=== PATIENT | female | born 1975 ===

== ENCOUNTER 2016-11-09 11:00 | Observation (INO) ==
[2016-11-05 09:34] LABS: Apearance,Urine CLEAR (Clear); Bilirubin,Urine Negative (Negative); Blood, Urine Negative (Negative); Glucose,Urine (UA) Negative (Negative); Ketones,Urine Negative (Negative); Mucus,Urine Occasional /LPF (Occasional); Nitrite,Urine Negative (Negative); Protein,Urine 30 MG/DL; RBC,Urine <1 /HPF (0-4); Squamous Epithelial Cell,Urine Occasional /HPF (0-10); Urine Color Yellow (Yellow); Urine Specific Gravity 1.028 (1.001-1.035); Urine Urobilinogen < 2.0 EU/DL (0.2-1.0); WBC,Urine <1 /HPF (0-6)
[2016-11-05 09:40] LABS: Basophils % 0.7 % (0.0-0.8); Eosinophils # 0.1 10*3/uL (0.0-0.87); Eosinophils % 2.5 % (0.00-10.9); Hematocrit 26.3 VOL% (35.7-47.0); Immature Granulocytes % 0.2 %; Immature Granulocytes Absolute 0.01 #; Lymphocytes # 1.6 10*3/uL (1.4-4.0); Lymphocytes % 38.6 % (21.3-54.2); Mean Corpuscular HGB Conc 27.8 GM/DL (32-36); Mean Corpuscular Hemoglobin 19 PG (27-34); Mean Corpuscular Volume 69.9 FL (87-102); Mean Platelet Volume 9.1 FL (9.6-12.0); Monocytes # 0.4 10*3/uL (0.11-0.8); Monocytes % 9.9 % (1.7-12.7); Neutrophils # 1.9 10*3/uL (1.4-7.4); Neutrophils % 48.1 % (38.7-73.9); Platelet Count 318 T/CUMM (130-400); Red Blood Count 3.76 MC/CUMM (3.8-5.5); Red Cell Distribution Width 20.1 % (9.3-17.3)
--- NOTE | 2016-11-05 09:45 | Order Completion Report ---
See report scanned to EMR
[2016-11-05 10:01] LABS: Hemoglobin 7.3 GM/DL (12.0-16.0)
[2016-11-05 10:02] LABS: Albumin 3.3 G/DL (3.4-5.0); Bilirubin,Total 0.4 MG/DL (0.2-1.0); Calcium 8.5 MG/DL (8.5-10.1); Potassium 3.7 MMOL/L (3.5-5.1); Total Protein 7.1 G/DL (6.4-8.3)
--- NOTE | 2016-11-05 10:20 | XRay Report ---
XR chest 2V Date: 11/05/2016 9:08 AM History: Respiratory preoperative evaluation Comparison: None Technique: PA and lateral chest Findings: The heart is normal in size. Calcified granulomata/nodes with minimal atelectasis in the left lower lobe. Unremarkable mediastinum with minimal degenerative changes. Prior cholecystectomy. Impression: Old healed granulomatous disease with minimal atelectasis/scarring in the left lower lobe. PROCEDURE INTERPRETED AT [facility] DEPARTMENT OF RADIOLOGY Final Report Signed by: Dr. Malathi Alvarado
[2016-11-05 10:22] LABS: Hypochromasia 2+
[2016-11-05 10:23] LABS: Microcytosis 2+; Platelet Estimate Normal; Polychromasia Slight; Target Cells Slight
[2016-11-05 11:14] LABS: HIV Antigen/Antibody Result Nonreactive (Nonreactive)
[2016-11-08 20:27] LABS: Apearance,Urine Slightly Hazy (Clear); Bilirubin,Urine Negative (Negative); Blood, Urine Negative (Negative); Glucose,Urine (UA) Negative (Negative); Ketones,Urine Negative (Negative); Mucus,Urine Occasional /LPF (Occasional); Nitrite,Urine Negative (Negative); Protein,Urine Negative; RBC,Urine <1 /HPF (0-4); Squamous Epithelial Cell,Urine Occasional /HPF (0-10); Urine Color Yellow (Yellow); Urine Specific Gravity 1.006 (1.001-1.035); Urine Urobilinogen < 2.0 EU/DL (0.2-1.0); WBC,Urine 1 /HPF (0-6)
[2016-11-08 20:40] LABS: Barbiturates Screen,Urine Negative (Negative); Benzodiazepines Screen,Urine Negative (Negative); Cannabinoid Screen,Urine Negative (Negative); Opiate Screen,Urine Negative (Negative); Phencyclidine Screen,Urine Negative (Negative)
[2016-11-08 20:50] LABS: Basophils % 0.5 % (0.0-0.8); Eosinophils # 0.1 10*3/uL (0.0-0.87); Eosinophils % 1.3 % (0.00-10.9); Hematocrit 26.1 VOL% (35.7-47.0); Hemoglobin 7.4 GM/DL (12.0-16.0); Immature Granulocytes % 0.2 %; Immature Granulocytes Absolute 0.01 #; Lymphocytes # 2.4 10*3/uL (1.4-4.0); Lymphocytes % 40.5 % (21.3-54.2); Mean Corpuscular HGB Conc 28.4 GM/DL (32-36); Mean Corpuscular Hemoglobin 20 PG (27-34); Mean Corpuscular Volume 69.6 FL (87-102); Mean Platelet Volume 9.3 FL (9.6-12.0); Monocytes # 0.7 10*3/uL (0.11-0.8); Monocytes % 10.8 % (1.7-12.7); NRBC # 0.02 10*3/uL; Neutrophils # 2.8 10*3/uL (1.4-7.4); Neutrophils % 46.7 % (38.7-73.9); Platelet Count 340 T/CUMM (130-400); Red Blood Count 3.75 MC/CUMM (3.8-5.5); Red Cell Distribution Width 19.9 % (9.3-17.3)
[2016-11-08 21:31] LABS: Hypochromasia 2+; Microcytosis 2+; Platelet Estimate Normal; Poikilocytosis 2+; Target Cells Few
[2016-11-09 06:18] LABS: Basophils % 0.5 % (0.0-0.8); Eosinophils # 0.1 10*3/uL (0.0-0.87); Hematocrit 28.3 VOL% (35.7-47.0); Hemoglobin 8.4 GM/DL (12.0-16.0); Immature Granulocytes % 0.2 %; Immature Granulocytes Absolute 0.01 #; Lymphocytes # 2.7 10*3/uL (1.4-4.0); Lymphocytes % 45.2 % (21.3-54.2); Mean Corpuscular HGB Conc 29.7 GM/DL (32-36); Mean Corpuscular Hemoglobin 21 PG (27-34); Mean Corpuscular Volume 71.5 FL (87-102); Mean Platelet Volume 9.6 FL (9.6-12.0); Monocytes # 0.5 10*3/uL (0.11-0.8); Monocytes % 8.5 % (1.7-12.7); NRBC # 0.02 10*3/uL; Neutrophils # 2.6 10*3/uL (1.4-7.4); Neutrophils % 43.6 % (38.7-73.9); Platelet Count 250 T/CUMM (130-400); Red Blood Count 3.96 MC/CUMM (3.8-5.5); Red Cell Distribution Width 19.7 % (9.3-17.3)
--- NOTE | 2016-11-09 07:29 | OB/GYN History & Physical ---
History of Present Illness Chief complaint: Pelvic pain History of present illness: Ms. Carter is a 40 year old female Multiparous patient with recurrent ovarian cysts, amenorrhea, failure to relieve pain medication specifically Lortab, Motrin, also low-dose control pills. Ultrasound demonstrated multiple ovarian cyst. Patient has no future desire for childbearing. We will proceed with robotic hysterectomy risks benefits were thoroughly discussed she is in full agreement. Patient has a history of anemia which her blood count was 6.2 and 21 on admission. She received 2 units of packed RBCs whereupon a H&H 1 hour after her last unit demonstrated 8 and 28.3. Will also have 2 units of packed RBCs on hold after surgery. Home Medications Medication Instructions Recorded Confirmed Type Acetaminophen Tab [Tylenol Tab] 325 mg PO Q6H PRN 11/05/16 11/05/16 History Ibuprofen 200 mg PO DIRECTED PRN 11/05/16 11/05/16 History oxyCODONE/ACETAMINOPHEN 5-325 1 tablet PO DIRECTED PRN 11/05/16 11/05/16 History [Percocet 5-325] Allergies Allergy/AdvReac Type Severity Reaction Status Date / Time No Known Allergies Allergy Unverified 11/05/16 09:08 Medical,Surgical,& Family Hx - Medical History Cardio: History of: Cardiac Dysrhythmia (past hx heart murmur.) Psychological: History of: Depression (HX OF CUTTING SELF MANY YRS AGO .SCARS LEFT INNER ARM) No history of: Previous Suicide Attempt Neurology: History of: Migraine (past hx.) No history of: Seizures HEENT: History of: Eye Problem (glasses) Respiratory: History of: Respiratory Problems (flu vac-?; pneu vac-no.) Musculoskeletal: History of: Musculoskeletal Problems (left ankle fx.) Hematology: History of: Anemia No history of: Blood Transfusion Reaction Reproductive: History of: Ovarian Cysts (REMOVAL RIGHT OVAR CYST), Reproductive Problems (pelvic pain) - Surgical History HEENT Surgeries: Surgical HX of: Tonsilectomy & Adenoidectomy Abdominal Surgeries: Surgical HX of: Cholecystectomy Reproductive Surgeries: Surgical HX of;: Gynecologic Surgery (lap cyst removed rt ovary.), Tubal Ligation Orthopedic Surgeries: Surgical HX of;: Orthopedic Surgery (left tendon sx) - Family History Family History: Reports;: Family Diabetes (MOM,DAD,MATERNAL GR MOM), Family Hypertension (DAD AND MATERNAL GRANDFATHER) - Social History Smoking Status: Current every day smoker Frequency of Alcohol Use: Occasionally 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 - Constitutional Vitals: Vital Signs Temp Pulse Pulse Pulse Resp BP BP 11/09/16 04:45 97.6 F 61 61 20 146/81 146/81 11/09/16 02:50 20 11/09/16 02:49 97.9 F 72 20 155/87 11/09/16 02:02 97.9 F 61 18 155/79 11/09/16 01:49 97.6 F 77 20 155/87 11/09/16 01:19 97.8 F 71 17 121/62 11/09/16 01:14 97.6 F 71 20 121/62 11/09/16 01:09 97.8 F 71 16 119/72 11/09/16 01:02 98.3 F 70 20 121/64 11/09/16 00:19 97.8 F 68 16 153/81 11/09/16 00:17 97.8 F 68 16 153/81 11/08/16 23:17 97.9 F 69 20 151/76 11/08/16 22:47 97.8 F 74 20 139/79 11/08/16 22:42 97.7 F 83 18 141/77 11/08/16 22:37 97.7 F 78 16 138/73 11/08/16 22:30 97.3 F L 84 16 140/78 11/08/16 19:50 98.2 F 69 20 164/93 11/08/16 18:25 97.2 F L 95 H 20 BP Pulse Ox Pulse Ox 11/09/16 04:45 98 98 11/09/16 02:50 11/09/16 02:49 97 11/09/16 02:02 96 11/09/16 01:49 95 11/09/16 01:19 96 11/09/16 01:14 97 11/09/16 01:09 97 11/09/16 01:02 99 11/09/16 00:19 98 11/09/16 00:17 98 11/08/16 23:17 100 11/08/16 22:47 98 11/08/16 22:42 95 11/08/16 22:37 98 11/08/16 22:30 96 11/08/16 19:50 98 11/08/16 18:25 142/85 100 General appearance: normal weight, mild distress - Antepartum / Post Antepartum Exam Uterus exam: Present: enlarged, tender - Head Head exam: Present: normal inspection - Eye Eye exam: Present: EOMI Pupils: Present: YUNIER - ENT ENT exam: Present: normal exam - Neck Neck exam: Present: normal inspection - Respiratory Respiratory exam: Present: clear to auscultation bilaterally - Breast Breasts: as per HPI Menstruation: as per HPI - Cardiovascular Cardiovascular exam: Present: regular rate and rhythm - GI/Abdominal GI/Abdominal exam: Present: normal bowel sounds, tenderness (Bilateral adnexal region), soft - Extremities Exam Extremities exam: Present: normal inspection - Back Exam Back exam: Present: normal inspection - Neurological Exam Neurological exam: Present: alert, oriented X3 - Psychiatric Psychiatric exam: Present: normal affect - Skin Skin exam: Present: normal color Assessment and Plan (1) Ovarian cyst Status: Acute Current Visit: Yes (2) Pelvic pain Status: Acute Assessment and plan: Recurrent pelvic pain, documented ovarian cyst, treatment with ibuprofen and analgesics similar to Lortab and Percocet in the past without any good relief. Patient has no further desire for childbearing, in light of her history of recurrent anemia planned on a robotic hysterectomy and BSO. Risks benefits were thoroughly discussed and she is in full agreement Current Visit: Yes Results - Labs CBC & BMP: 11/09/16 04:34 11/05/16 09:20
[2016-11-09 10:56] LABS: Apearance,Urine CLEAR (Clear); Bilirubin,Urine Negative (Negative); Blood, Urine Negative (Negative); Glucose,Urine (UA) Negative (Negative); Ketones,Urine Negative (Negative); Nitrite,Urine Negative (Negative); Protein,Urine Negative; RBC,Urine <1 /HPF (0-4); Urine Color Colorless (Yellow); Urine Specific Gravity 1.002 (1.001-1.035); Urine Urobilinogen < 2.0 EU/DL (0.2-1.0); WBC,Urine <1 /HPF (0-6)
[~2016-11-09 11:00] MED LIST: AMPICILLIN/SULBACTAM 3,000 MG VIAL ONE; AMPICILLIN/SULBACTAM 3,000 MG in SODIUM CHLORIDE 0.9% 100 ML IV ONE; DIAZEPAM 5 MG TABLET PO ONE; FAMOTIDINE 20 MG TABLET PO ONE; INFLUENZA VIRUS VACCINE 0.5 ML SYRINGE IM ONE; LACTATED RINGERS 1,000 ML IV SCH; SODIUM CHLORIDE 0.9% 100 ML IV ONE; SODIUM CHLORIDE 0.9% 250 ML IV PRN
[2016-11-09] MEDS ORDERED: MAGNESIUM HYDROXIDE SUSP 30 ML UDCUP PO PRN (11:46)
[2016-11-09] MEDS ORDERED: ACETAMINOPHEN 325 MG TABLET PO PRN (11:46)
[2016-11-09] MEDS ORDERED: DOCUSATE SODIUM 100 MG CAPSULE PO PRN (11:46)
[2016-11-09] MEDS ORDERED: BISACODYL 10 MG SUPP RECTAL PRN (11:46)
[2016-11-09] MEDS ORDERED: BENZOCAINE/MENTHOL LOZENGE 18/BOX PO PRN (11:46)
[2016-11-09] MEDS ORDERED: ONDANSETRON 4 MG/2 ML VIAL IV PRN ×2 (11:46→12:28)
--- NOTE | 2016-11-09 11:46 | Operative Note ---
Date of procedure: 11/09/16 Procedure: Preoperative diagnosis: [] Chronic pelvic pain, endometriosis, recurrent ovarian cyst Postoperative diagnosis: Same Anesthesia: General. endotracheal anesthesia Estimated blood loss: [] 250 Surgeon: Dr. Arenas Findings: [] Cyst, endometriosis Complications: None Procedure: Robotic da Dona hysterectomy and bilateral salpingo-oophorectomy After the risk, benefits and alternatives were explained to the patient in detail and informed consent was obtained, the patient was taken to the operating room and placed in supine position. Achieving appropriate general endotracheal anesthesia, the patient was carefully repositioned in low lithotomy position in Anton stirrups., Vagina and abdomen were prepped and draped in the usual sterile fashion. Was placed which revealed clear urine. Appropriate time out, a weighted speculum was placed in the vagina. The anterior lip of the cervix was grasped and the single-tooth tenaculum and the uterus sounded to 10 cm. A medium-sized Catie manipulator cup with a 8 cm stem with balloon occluder was attached to the Catie arch manipulator apparatus which was placed without difficulty and secured in the anterior and posterior lips of the cervix using 0 Vicryl suture. After regloving with the patient flat and an NG tube in place, a supraumbilical incision was made and while elevating on the anterior abdominal wall using a towel clip, a Veress needle was inserted through the supraumbilical incision and peritoneal space with insufflation of the abdomen with CO2 gas. The 4 mm pressure rapid insufflation was then performed to achieve a pneumoperitoneum of 5 L at 20 mm of pressure. While elevating on the anterior abdominal wall using a towel clip, a 12 mm trocar inserted through the supraumbilical incision and peritoneal space with appropriate entry confirmed by direct visualization via the laparoscope. There was no evidence of any damage to underlying structures. An 8 mm robotic trocar was placed after trans-illumination of the inferior epigastric vessels bilaterally and a 512 step trocar was placed in the left upper quadrant also under direct visualization without complications the patient was then placed in Trendelenburg and the da Dona robot successively side docked. The rest of the procedure was performed through the robotic console. On visualization of the pelvis[], both ureters were identified. The utero-ovarian ligaments were identified bilaterally and taken down using PK bipolar and monopolar scissors and double burn techniques and this was carried out to the round ligaments bilaterally on maintaining cephalic traction on the Catie manipulator. The bladder flap was created anterior along the lower uterine segment using monopolar scissors. And the uterine vessels were skeletonized bilaterally and dissected. The broad ligament was also dissected as well under direct visualization. The uterine vessels were taken down and double burn technique while maintaining cephalic traction on the Catie manipulator and using the rim of the manipulator as a template. The monopolar scissors was used to try and transect the vagina from the cervix at the level of the l vaginal fornices and the specimen was removed to the mid vagina. The vaginal cuff was made hemostatic using fenestrated bipolar forceps and the vaginal cuff was closed using 0 the lock suture in a running fashion beginning at the right angle and overlapping past the midline. The uterosacral ligaments were reefed in the midline and a Zepeda type fashion for adequate elevation of the vaginal vault. Hemostasis was noted to be excellent. The ureters were identified to be functioning throughout the course of the surgery. Note that once all trochars had been place the abdominal pressure had been reduced to 50 mm of pressure upon completion of the procedure to confirm good hemostasis. All instruments were removed. The da Dona robot was successfully undocked. The patient placed back in the lithotomy position. The abdomen completely deflated. All trochars removed and trocar sites closed in the usual fashion with 0 Vicryl suture on the fascia and skin closed with jovani. Durbin cath was then removed. Indigo carmine was administered intravenously followed by Lasix and flexible cystoscopy was performed using normal saline. Normal reflux were noted from ureters bilaterally. Durbin catheter was replaced. Patient taken out of lithotomy position and awakened from anesthesia without complications. The patient was taken to recovery room in stable condition. All sponges needle and instrument counts were correct 3 at the end of this procedure. Surgeon / Physician: Rd Arenas Results - Labs CBC & BMP: 11/09/16 04:34 11/05/16 09:20 Discharge Plan - Discharge Medications No Action Ibuprofen 200 mg PO DIRECTED PRN PRN Reason: Pain Acetaminophen Tab [Tylenol Tab] 325 mg PO Q6H PRN PRN Reason: Pain oxyCODONE/ACETAMINOPHEN 5-325 [Percocet 5-325] 1 tablet PO DIRECTED PRN PRN Reason: Pain - Follow Up or Referral - Forms/Instructions
[2016-11-09] MEDS ORDERED: NALOXONE 0.4 MG/ML VIAL IV PRN (11:49)
[2016-11-09] MEDS ORDERED: HYDROmorphone PCA 30 MG/30 ML SYRINGE IV SCH (12:00)
--- NOTE | 2016-11-09 12:02 | Anesthesia Post-Op ---
Anesthesia Post OP - Post Ansesthetic Evaluation Patient seen in post op: Yes Resp: within normal limits CV: within normal limits Mental: within normal limits Temp: within normal limits [id number]-[id number]: within normal limits Nausea and Vomiting: within normal limits Pain: within normal limits
[2016-11-09] MEDS ORDERED: HYDROmorphone 2 MG/1 ML VIAL ONE (12:08)
[2016-11-09] MEDS ORDERED: ONDANSETRON 4 MG/2 ML VIAL ONE ×2 (12:08→12:15)
[2016-11-09] MEDS: HYDROmorphone 2 MG/1 ML VIAL IV PRN ×2 (12:09→12:14)
[2016-11-09] MEDS ORDERED: PROPOFOL 200 MG/20 ML VIAL IV ONE (12:15)
[2016-11-09] MEDS ORDERED: NEOSTIGMINE 10 MG/10 ML VIAL ONE (12:15)
[2016-11-09] MEDS ORDERED: fentaNYL 100 MCG/2 ML VIAL ONE (12:15)
[2016-11-09] MEDS ORDERED: GLYCOPYRROLATE 0.4 MG/2 ML VIAL ONE (12:15)
[2016-11-09] MEDS ORDERED: MIDAZOLAM 2 MG/2 ML VIAL ONE (12:15)
[2016-11-09] MEDS ORDERED: ACETAMINOPHEN 1,000 MG/100 ML VIAL IV ONE (12:15)
[2016-11-09] MEDS ORDERED: SEVOFLURANE 1 UNIT/15 MINUTE INH ONE (12:15)
[2016-11-09] MEDS ORDERED: LACTATED RINGERS 1,000 ML IV ONE (12:16)
[2016-11-09] MEDS ORDERED: ROCURONIUM 100 MG/10 ML VIAL IV ONE (12:16)
[2016-11-09] MEDS ORDERED: SUCCINYLCHOLINE 200 MG/10 ML VIAL ONE (12:16)
[2016-11-09] MEDS ORDERED: HYDROmorphone PCA 30 MG/30 ML SYRINGE IV ONE (12:34)
[2016-11-09] MEDS: LACTATED RINGERS 1,000 ML IV SCH ×2 (20:23→20:24)
[2016-11-10] MEDS: LACTATED RINGERS 1,000 ML IV SCH (05:15)
[2016-11-10 06:29] LABS: Basophils % 0.1 % (0.0-0.8); Hematocrit 33.8 VOL% (35.7-47.0); Immature Granulocytes % 0.5 %; Immature Granulocytes Absolute 0.05 #; Lymphocytes # 1.7 10*3/uL (1.4-4.0); Lymphocytes % 16.5 % (21.3-54.2); Mean Corpuscular HGB Conc 30.8 GM/DL (32-36); Mean Corpuscular Hemoglobin 23 PG (27-34); Mean Corpuscular Volume 74.4 FL (87-102); Mean Platelet Volume 9.6 FL (9.6-12.0); Monocytes # 1.1 10*3/uL (0.11-0.8); Monocytes % 10.2 % (1.7-12.7); NRBC # 0.03 10*3/uL; Neutrophils # 7.6 10*3/uL (1.4-7.4); Neutrophils % 72.7 % (38.7-73.9); Platelet Count 239 T/CUMM (130-400); Red Blood Count 4.54 MC/CUMM (3.8-5.5); Red Cell Distribution Width 21.1 % (9.3-17.3)
[2016-11-10 06:52] LABS: Hemoglobin 10.4 GM/DL (12.0-16.0); White Blood Count 10.5 T/CUMM (4-12)
--- NOTE | 2016-11-10 09:26 | Progress Note ---
Assessment and Plan (1) Ovarian cyst Status: Acute Current Visit: Yes (2) Pelvic pain Status: Acute Assessment and plan: Recurrent pelvic pain, documented ovarian cyst, treatment with ibuprofen and analgesics similar to Lortab and Percocet in the past without any good relief. Patient has no further desire for childbearing, in light of her history of recurrent anemia planned on a robotic hysterectomy and BSO. Risks benefits were thoroughly discussed and she is in full agreement Current Visit: Yes Family Medicine PN Sub Interval history: Postop day #1 Status post robotic hysterectomy and BSO Tolerating diet, incision sites intact, abdomen is benign, minimal vaginal bleeding Extremities well within normal limits neurologic grossly intact Assessment plan Possible discharge in a.m. increase her ambulation. Exam (Progress Note) - Constitutional Vitals: Period Temp Pulse Resp BP Sys/Basilio Pulse Ox Last 24 Hr 96.4 F-98.2 F 50-73 14-218 135-178/69-86 93-100 Results - Labs CBC & BMP: 11/10/16 05:50 11/05/16 09:20 Quality Measures - VTE Contraindication to Pharmacological VTE Prophylaxis: Clinical assessment deems Pt at low risk, no prophalaxis needed
[2016-11-10] MEDS: IBUPROFEN 800 MG TABLET PO PRN ×2 (09:32→18:26)
--- NOTE | 2016-11-10 12:23 | Pathology Report from [facility] ---
[facility] [place] ACCESSION # : [id number] PATIENT NAME : Mari Carter ORDERING DR : SCOTT GARCIA MD CLINICAL HX: Anemia, pelvic pain POST-OP DX: Same SPECIMEN INFO: Uterus, cervix, RT & LT tube & ovary GROSS DESCRIPTION: Received in formalin labeled MARI CARTER is a 182 gm uterus with cervix measuring 11.0 x 6.8 x 4.8 cm. The serosa is red palm and free of adhesions. The cervix measures 4.4 cm. The cervical os measures 1.2 cm. The endocervical canal is palm and patent. The endometrial cavitary is hyperemic with a mucosal thickness of up to 0.3 cm. Sectioning reveals no gross abnormalities. The right ovary is pink palm measuring 5.8 x 2.3 cm. Sectioning reveals multiple clear fluid filled cysts measuring up to 0.5 cm as well as hemorrhagic corpus luteum measuring 1.4 cm. The adjacent fallopian tube is fimbriated and has been previously transected measuring 5.0 x 0.7 cm with a few paratubal cysts noted measuring up to 0.7 cm. The left ovary is pink palm measuring 4.0 x 0.5 cm. Sectioning reveals a few cysts containing yellow serous fluid measuring up to 3.0 cm. The lining of the largest cyst is smooth with no excrescences or other lesions appreciated. The adjacent fallopian tube is fimbriated and has been previously transected. The tube measures 6.0 x 0.7 cm with a 0.7 cm paratubal cyst noted. Sections submitted A-Cervix, B&C- Endomyometrium, D-Posterior uterine serosa, E-RT ovary, F-RT tube, G-LT ovary & tube. DIAGNOSIS FOR MARI CARTER: UTERUS, CERVIX, RIGHT & LEFT TUBES & OVARIES : Chronic cystic cervicitis, squamous metaplasia. Polypoid secretory endometrium. Right ovary with a hemorrhagic luteal cyst, smaller follicular cysts; fallopian tube with paratubal cysts. Left ovary with follicular cysts; fallopian tube with paratubal cysts. COLLECTED DATE: 11/09/2016 [facility] [place] REPORT DATE: 11/10/2016 ELECTRONICALLY SIGNED BY: Geoff Jeffery M.D. 11/10/2016 - 10:25:31 [facility]
[2016-11-11 07:43] VITALS: BP 140/75
--- NOTE | 2016-11-11 10:21 | Discharge Summary ---
Hospital Course - Hospital Course Hospital Course: Patient was taken to surgery on 09 November. She underwent a robotic hysterectomy BSO secondary to chronic pelvic pain, repeat recurrent ovarian cyst , and failure treatment with analgesics antibiotics. Surgery was uneventful. She was preoperatively her H&H was 7 and 23 she received 2 units of packed RBCs before surgery and has done remarkably well. Patient also received 2 units of packed RBCs after surgery as well. She is ambulating, voiding well, no complaints of shortness of breath chest pain or palpitations. Incision sites intact and there has been no vaginal bleeding. She is not requesting at this time hormonal therapy but will be discharged with analgesic and follow-up in our office in approximately 2 weeks. She did have a positive drug screen for cocaine caution and discussed this with this patient and she is fully aware of the consequences of using illegal drugs of this nature. Diagnosis - Discharge Diagnosis (1) Ovarian cyst Status: Acute (2) Pelvic pain Status: Acute Specialty Discharge - Follow Up or Referrals Follow up with: Rd Arenas MD [Physician] - Discharge Plan - Discharge Data Condition at Discharge: Stable Discharge Diet: advance to your usual diet Activity: increase activity as tolerated Hygiene: no restrictions Weight Bearing at Discharge: weight bear as tolerated Driving: not until seen by doctor Contact your physician if you experience:: fever over 101, Bleeding - Discharge Medications New Ibuprofen Tab [Motrin Tab] 800 mg PO Q8H PRN #30 tablet PRN Reason: Pain Mild To Moderate (1-7) HYDROcodone/ACETAMIN 5-325 [[place] 5-325] 1 tablet PO Q4H PRN #20 tablet PRN Reason: Pain Moderate (4-7) No Action Ibuprofen 200 mg PO DIRECTED PRN PRN Reason: Pain Acetaminophen Tab [Tylenol Tab] 325 mg PO Q6H PRN PRN Reason: Pain oxyCODONE/ACETAMINOPHEN 5-325 [Percocet 5-325] 1 tablet PO DIRECTED PRN PRN Reason: Pain - Follow Up or Referral Follow Up: Rd Arenas MD [Physician] - - Forms/Instructions Instructions: Abdominal Hysterectomy (DC), Surgical Site Infections (GEN) Exam - Constitutional Vitals: Period Temp Pulse Resp BP Sys/Basilio Pulse Ox Last 24 Hr 97 F-98.4 F 57-72 18-20 126-147/60-84 96-100 DS: Provider Date of admission: 11/08/16 18:12 Primary care physician: Luna Jean MD Attending physician on admission: Rd Arenas MD Consults: 11/08/16 19:01 Consult to Anesthesiology [CONS] Routine Consulting Provider: Reason for Anesthesiology: Pre-op Clearance Discharging clinician: Rd Arenas MD
[2016-11-11] MEDS: IBUPROFEN 800 MG TABLET PO PRN (12:22)
== END 2016-11-11 15:55 | disposition home or self-care (01) ==
LOC: N.OB → EDSTATUS 11:00
PROVIDERS: ADMIT Obstetrics & Gynecology; ATTEND Obstetrics & Gynecology